=== PATIENT | female | born 1965 | race Two or more races ===

== ENCOUNTER 2023-04-23 15:06 | Emergency (ER) | payer OTHER ==
[~2023-04-23] VITALS: Ht 165.1 cm; Wt 76.7 kg
== END 2023-04-23 19:44 | disposition home or self-care (01) ==
LOC: ER 15:06 → EDSEX 15:31 → ER 19:44
DX: U07.1 COVID-19 (principal); J10.1 Influenza due to other identified influenza virus with other respiratory manifestations